=== PATIENT | female | born 1965 | race Caucasian/White ===

== ENCOUNTER 2019-01-14 05:10 | Emergency (ER) | payer BC ==
[2019-01-14] MEDS ORDERED: MORPHINE SULFATE 5 MG/ML VIAL IVP ONE ×2 (05:26→08:07)
[2019-01-14] MEDS ORDERED: 0.9 % SODIUM CHLORIDE 1,000 ML BAG IV ONE (05:26)
[2019-01-14] MEDS ORDERED: ONDANSETRON HCL IV 4 MG/2 ML VIAL IVP ONE (05:26)
--- NOTE | 2019-01-14 05:32 | Emergency Department Record ---
History of Present Illness - General Chief Complaint: Abdominal Pain Stated Complaint: abd pain Time Seen by Provider: 01/14/19 05:11 Source: Patient Mode of Arrival: Ambulatory Limitations: No limitations - History of Present Illness Initial Comments: 53 yo female presents with left sided abdominal pain the last two days. The pain goes from the umbilical area to the left upper quadrant. She has some left flank pain as well. She has had some nausea without vomiting. No diarrhea. One week ago she had dysuria with frequency. She was treated at an Urgent Care. She reports she was diagnosed with a UTI. She has been on Macrobid. No hematuria. No diarrhea. No vomiting. She thinks she had a fever yesterday. She has had three hernia surgeries as well as an appendectomy. No rash in the area of pain. Her PCP is Dr Love. Complaint: Abdominal pain Onset/Timin -: Days(s) (2) Location: LLQ Radiation: L flank Migration to: No migration Severity scale (1-10): 9 Quality: Sharp, Stabbing Consistency: Constant Improves With: Nothing Worsens With: Movement Associated Symptoms: Denies other symptoms - Related Data Patient : No Home Medications Medication Instructions Recorded Confirmed Last Taken Amlodipine Besylate [Norvasc] 1 tab PO DAILY 01/14/19 01/14/19 01/13/19 Clonazepam 1 tab PO BID 01/14/19 01/14/19 01/14/19 Dicyclomine HCl [Bentyl] 1 tab PO ASDIR PRN 01/14/19 01/14/19 01/14/19 Metoprolol Succinate [Toprol Xl] 1 tab PO DAILY 01/14/19 01/14/19 01/13/19 Nitrofurantoin Monohyd/M-Cryst 1 tab PO BID 01/14/19 01/14/19 01/13/19 [Macrobid 100 mg Capsule] Omeprazole [Prilosec] 20 mg PO BID 01/14/19 01/14/19 01/13/19 Tramadol HCl 1 tab PO QID 01/14/19 01/14/19 01/13/19 Previous Rx's Medication Instructions Recorded Ciprofloxacin HCl [Cipro] 500 mg PO Q12HR #20 tablet 01/14/19 Fluconazole [Diflucan] 150 mg PO ONCE #1 tab 01/14/19 Hydrocodone/Acetaminophen [Orlinda 1 each PO Q4HR #18 tablet 01/14/19 5-325 Tablet] Metronidazole [Flagyl] 500 mg PO Q8H #30 tablet 01/14/19 Allergies Allergy/AdvReac Type Severity Reaction Status Date / Time atropine [From ] Allergy RASH Verified 01/14/19 05:28 azithromycin Allergy RASH Verified 01/14/19 05:28 hyoscyamine [From ] Allergy RASH Verified 01/14/19 05:28 magnesium Allergy FLUSHING Verified 01/14/19 05:28 phenobarbital [From ] Allergy RASH Verified 01/14/19 05:28 scopolamine [From ] Allergy RASH Verified 01/14/19 05:28 sulfamethoxazole Allergy RASH Verified 01/14/19 05:28 [From Bactrim] trimethoprim [From Bactrim] Allergy RASH Verified 01/14/19 05:28 Travel Screening - Travel/Exposure Within Last 30 Days Have you traveled within the last 30 days?: No - Travel/Exposure Within Last Year Have you traveled outside the [place] in the last year?: No - Additonal Travel Details Have you been exposed to anyone with a communicable illness?: No - Travel Symptoms Symptom Screening: None Review of Systems Constitutional: Reports: Fever. Denies: Chills, Malaise, Weakness Eyes: Denies: Eye discharge ENT: Denies: Congestion, Throat pain Respiratory: Denies: Cough, Dyspnea Cardiovascular: Denies: Chest pain, Palpitations, Syncope Endocrine: Denies: Fatigue, Polydipsia, Polyuria Gastrointestinal: Reports: As per HPI, Abdominal pain, Nausea, Vomiting. Denies: Constipation, Diarrhea, Hematemesis, Hematochezia, Melena Genitourinary: Reports: As per HPI, Dysuria, Frequency, Urgency Musculoskeletal: Reports: As per HPI, Back pain. Denies: Arthralgia Skin: Denies: Bruising, Change in color, Rash Neurological: Denies: Headache, Weakness Psychiatric: Denies: Anxiety Hematological/Lymphatic: Denies: Easy bleeding, Easy bruising Past Medical History - SOCIAL HISTORY Smoking Status: Current every day smoker Alcohol Use: Rare Drug Use: None - RESPIRATORY Hx Respiratory Disorders: Yes Hx Pneumonia: Yes - CARDIOVASCULAR Hx Cardio Disorders: Yes Hx Hypertension: Yes - NEURO Hx Neuro Disorders: No - GI Hx GI Disorders: Yes Hx Hiatal Hernia: Yes - Hx Genitourinary Disorders: Yes Hx UTI: Yes - ENDOCRINE Hx Endocrine Disorders: No - MUSCULOSKELETAL Hx Musculoskeletal Disorders: No - PSYCH Hx Psych Problems: Yes Hx Anxiety: Yes Family Medical History Any Significant Family History?: No Physical Exam - General General Appearance: Alert, Oriented x3, Cooperative, No acute distress Limitations: No limitations - Head Head exam: Atraumatic, Normal inspection - Eye Eye exam: Normal appearance, PERRL. negative: Conjunctival injection, Scleral icterus - ENT ENT exam: Normal exam Ear exam: Normal external inspection Nasal Exam: Normal inspection Mouth exam: Normal external inspection - Neck Neck exam: Normal inspection - Respiratory Respiratory exam: Normal lung sounds bilaterally. negative: Respiratory distress - Cardiovascular Cardiovascular Exam: Regular rate, Normal rhythm, Normal heart sounds - GI/Abdominal GI/Abdominal exam: Soft, Tenderness (tender in the LUQ but soft, no definite mass or palpable hernia. The remainder of the abdomen is very soft and not tend er). negative: Distended, Guarding, Rebound, Rigid - Rectal Rectal exam: Deferred - exam: Deferred - Extremities Extremities exam: Normal inspection. negative: Pedal edema, Tenderness - Back Back exam: Reports: CVA tenderness (L). Denies: CVA tenderness (R), Rash noted - Neurological Neurological exam: Alert, Oriented X3 - Psychiatric Psychiatric exam: Normal affect, Normal mood. negative: Agitated, Anxious - Skin Skin exam: Dry, Intact, Normal color, Warm Course - Reevaluation(s) Reevaluation #1: 01/14/19 05:49 The CBC was reviewed No acute changes The UA is negative for signs of infection 01/14/19 07:00 The patient was signed out a shift change to Dr Handy The CT is pending at this time Turnover was performed at the bedside Medical Decision Making - Lab Data Result diagrams: 01/14/19 05:37 01/14/19 05:37 Disposition Disposition: Discharge Clinical Impression: Diverticulitis Abdominal pain Qualifiers: Abdominal location: unspecified location Qualified Code(s): R10.9 - Unspecified abdominal pain Disposition: Home, Self-Care Condition: (1) Good Instructions: Diverticulitis (ED), Abdominal Pain (ED) Additional Instructions: Review this ER visit and the tests performed with your family doctor Call your doctor for the next available follow up appointment Return to the ER for a recheck if worse, any new concerns or questions Take the prescriptions provided as directed low fiber diet for 2 weeks follow up with your family Dr in 2-3 days. Prescriptions: Hydrocodone/Acetaminophen [Orlinda 5-325 Tablet] 1 each PO Q4HR #18 tablet Ciprofloxacin HCl [Cipro] 500 mg PO Q12HR #20 tablet Fluconazole [Diflucan] 150 mg PO ONCE #1 tab Metronidazole [Flagyl] 500 mg PO Q8H #30 tablet Referrals: Virgil Cintron [DOCTOR OF OSTEOPATH] - [facility] Specialty Clinics [Provider Group] Forms: Patient Portal Access Time of Disposition: 07:30 Quality - Quality Measures Quality Measures: N/A - Blood Pressure Screening Does Patient Have Any of the Following: Active Dx of HTN Blood Pressure Classification: Hypertensive Reading Systolic Measurement: 156 Diastolic Measurement: 96 Screening for High Blood Pressure: Patient Exclusion, Hx of HTN [G9744]
[2019-01-14 05:42] LABS: ABSOLUTE NEUTROPHIL COUNT 6.02; BASO % 0.3 % (0-6); EOS % 2.4 % (0-6); GRAN % 58.4 % (47-80); HEMATOCRIT 42.6 % (35.0-47.0); HEMOGLOBIN 13.7 gm/dl (11.6-16.0); LYMPH % 30.8 % (16-45); MEAN CELL VOLUME 94.2 fl (81-97); MEAN CORPUSCULAR HEMOGLOBIN 30.3 pg (27-33); MEAN CORPUSCULAR HGB CONC 32.2 g/dl (32-36); MEAN PLATELET VOLUME 9.5 fl (7.4-10.4); MONO % 8.1 % (0-9); PLATELET COUNT 301 K/uL (130-400); RED BLOOD COUNT 4.52 M/uL (3.80-5.40); RED CELL DISTRIBUTION WIDTH 12.8 % (11.5-14.5); WHITE BLOOD COUNT W/O DIFF 10.3 K/uL (4.2-12.2)
[2019-01-14 05:44] LABS: URINE APPEARANCE CLEAR; URINE BILIRUBIN NEGATIVE (NEGATIVE); URINE BLOOD TRACE-L (NEGATIVE); URINE COLOR YELLOW; URINE GLUCOSE (UA) NEGATIVE (NEGATIVE); URINE KETONE NEGATIVE (NEGATIVE); URINE LEUKOCYTE ESTERASE NEGATIVE (NEGATIVE); URINE NITRITE NEGATIVE (NEGATIVE); URINE PROTEIN NEGATIVE (NEGATIVE); URINE UROBILINOGEN 0.2 E.U./dL (0.20 - 1.00)
[2019-01-14 05:53] LABS: URINE BACTERIA FEW; URINE WBC 0 - 2 (0-2/hpf)
[2019-01-14 05:58] LABS: BLOOD UREA NITROGEN 26 mg/dL (6-20); CREATININE 0.7 mg/dL (0.5-0.9); EST GLOMERULAR FILTRATION RATE > 60 mL/min
[2019-01-14 05:59] LABS: LIPASE 29 U/L (13-60)
[2019-01-14 06:01] LABS: GLUCOSE,RANDOM 120 mg/dL (74-109)
[2019-01-14 06:03] LABS: ALT/SGPT 18 U/L (<33)
[2019-01-14 06:04] LABS: ALB/GLOB RATIO 1.6 (1.1-1.8); ALBUMIN 4.3 g/dL (4.0-5.0); ALKALINE PHOSPHATASE 88 U/L (35-104); AST/SGOT 14 U/L (10.0-35.0)
--- NOTE | 2019-01-14 07:21 | Emergency Department Record ---
History of Present Illness - General Chief Complaint: Abdominal Pain Stated Complaint: abd pain Time Seen by Provider: 01/14/19 05:11 Source: Patient Mode of Arrival: Ambulatory Limitations: No limitations - History of Present Illness Initial Comments: patient developed abd pain 2 days ago after 7 bouts of diarrhea and she took four immodims on and yesterday she had formed stool but she developed left sided abd pain and periumbilical abd pain and bloating and no vomiting and no dysuria but she was diagnosed with a UTI about 8 days ago and has a few macrobids left. PSH GB removal ,hysterectomy and umbilical hernia repair with mesh and she said the pain feels like when she had the umbilical hernia. Appendectomy and her primary is Dr Palacios. Complaint: Abdominal pain Onset/Timin -: Days(s) (2) Location: LLQ Radiation: L flank Migration to: No migration Severity scale (1-10): 9 Quality: Sharp, Stabbing Consistency: Constant Improves With: Nothing Worsens With: Movement Associated Symptoms: Denies other symptoms - Related Data Patient : No Home Medications Medication Instructions Recorded Confirmed Last Taken Amlodipine Besylate [Norvasc] 1 tab PO DAILY 01/14/19 01/14/19 01/13/19 Clonazepam 1 tab PO BID 01/14/19 01/14/19 01/14/19 Dicyclomine HCl [Bentyl] 1 tab PO ASDIR PRN 01/14/19 01/14/19 01/14/19 Metoprolol Succinate [Toprol Xl] 1 tab PO DAILY 01/14/19 01/14/19 01/13/19 Nitrofurantoin Monohyd/M-Cryst 1 tab PO BID 01/14/19 01/14/19 01/13/19 [Macrobid 100 mg Capsule] Omeprazole [Prilosec] 20 mg PO BID 01/14/19 01/14/19 01/13/19 Tramadol HCl 1 tab PO QID 01/14/19 01/14/19 01/13/19 Previous Rx's Medication Instructions Recorded Ciprofloxacin HCl [Cipro] 500 mg PO Q12HR #20 tablet 01/14/19 Fluconazole [Diflucan] 150 mg PO ONCE #1 tab 01/14/19 Hydrocodone/Acetaminophen [Orrick 1 each PO Q4HR #18 tablet 01/14/19 5-325 Tablet] Metronidazole [Flagyl] 500 mg PO Q8H #30 tablet 01/14/19 Allergies Allergy/AdvReac Type Severity Reaction Status Date / Time atropine [From ] Allergy RASH Verified 01/14/19 05:28 azithromycin Allergy RASH Verified 01/14/19 05:28 hyoscyamine [From ] Allergy RASH Verified 01/14/19 05:28 magnesium Allergy FLUSHING Verified 01/14/19 05:28 phenobarbital [From ] Allergy RASH Verified 01/14/19 05:28 scopolamine [From ] Allergy RASH Verified 01/14/19 05:28 sulfamethoxazole Allergy RASH Verified 01/14/19 05:28 [From Bactrim] trimethoprim [From Bactrim] Allergy RASH Verified 01/14/19 05:28 Travel Screening - Travel/Exposure Within Last 30 Days Have you traveled within the last 30 days?: No - Travel/Exposure Within Last Year Have you traveled outside the [place] in the last year?: No - Additonal Travel Details Have you been exposed to anyone with a communicable illness?: No - Travel Symptoms Symptom Screening: None Review of Systems Constitutional: Reports: Fever. Denies: Chills, Malaise, Weakness Eyes: Denies: Eye discharge ENT: Denies: Congestion, Throat pain Respiratory: Denies: Cough, Dyspnea Cardiovascular: Denies: Chest pain, Palpitations, Syncope Endocrine: Denies: Fatigue, Polydipsia, Polyuria Gastrointestinal: Reports: As per HPI, Abdominal pain, Nausea. Denies: Constipation, Diarrhea, Hematemesis, Hematochezia, Melena Genitourinary: Reports: As per HPI, Dysuria, Frequency, Urgency Musculoskeletal: Reports: As per HPI, Back pain. Denies: Arthralgia Skin: Denies: Bruising, Change in color, Rash Neurological: Denies: Headache, Weakness Psychiatric: Denies: Anxiety Hematological/Lymphatic: Denies: Easy bleeding, Easy bruising Past Medical History - SOCIAL HISTORY Smoking Status: Current every day smoker Alcohol Use: Rare Drug Use: None - RESPIRATORY Hx Respiratory Disorders: Yes Hx Pneumonia: Yes - CARDIOVASCULAR Hx Cardio Disorders: Yes Hx Hypertension: Yes - NEURO Hx Neuro Disorders: No - GI Hx GI Disorders: Yes Hx Hiatal Hernia: Yes - Hx Genitourinary Disorders: Yes Hx UTI: Yes - ENDOCRINE Hx Endocrine Disorders: No - MUSCULOSKELETAL Hx Musculoskeletal Disorders: No - PSYCH Hx Psych Problems: Yes Hx Anxiety: Yes Family Medical History Any Significant Family History?: No Physical Exam - General General Appearance: Alert, Oriented x3, Cooperative, No acute distress Limitations: No limitations - Head Head exam: Normal inspection - Eye Eye exam: Normal appearance, PERRL Pupils: Normal accommodation - ENT ENT exam: Normal exam, Mucous membranes moist, Normal external ear exam, Normal orophraynx, TM's normal bilaterally Ear exam: Normal external inspection. negative: External canal tenderness Nasal Exam: Normal inspection. negative: Discharge, Sinus tenderness Mouth exam: Normal external inspection, Tongue normal Teeth exam: Normal inspection. negative: Dental caries Throat exam: Normal inspection. negative: Tonsillar erythema, Tonsillar exudate - Neck Neck exam: Normal inspection, Full ROM. negative: Tenderness - Respiratory Respiratory exam: Normal lung sounds bilaterally. negative: Respiratory distress - Cardiovascular Cardiovascular Exam: Regular rate, Normal rhythm, Normal heart sounds - GI/Abdominal GI/Abdominal exam: Soft, Normal bowel sounds, Guarding, Tenderness (left sided abd pain and periumbilical pain) - Rectal Rectal exam: Deferred - exam: Deferred - Extremities Extremities exam: Normal inspection, Full ROM, Normal capillary refill. negative: Tenderness - Back Back exam: Reports: Normal inspection, Full ROM. Denies: Muscle spasm, Rash noted, Tenderness - Neurological Neurological exam: Alert, Normal gait, Oriented X3, Reflexes normal - Psychiatric Psychiatric exam: Normal affect, Normal mood - Skin Skin exam: Dry, Intact, Normal color, Warm Course Vital Signs 01/14/19 01/14/19 05:36 06:41 Temperature 98.1 F Pulse Rate [ 80 69 Left] Respiratory 16 Rate Blood Pressure 164/95 158/99 [Left Arm] Pulse Ox 99 100 took over patient [address] Dr Riddle at [address] scan reading was pending - Reevaluation(s) Reevaluation #1: discussed options of staying vs outpatient treatment and she wants outpatient treatment. 01/14/19 08:09 Medical Decision Making - Lab Data Result diagrams: 01/14/19 05:37 01/14/19 05:37 Lab Results 01/14/19 01/14/19 01/14/19 Range/Units 05:15 05:37 05:37 WBC 10.3 (4.2-12.2) K/uL RBC 4.52 (3.80-5.40) M/uL Hgb 13.7 (11.6-16.0) gm/dl Hct 42.6 (35.0-47.0) % MCV 94.2 (81-97) fl MCH 30.3 (27-33) pg MCHC 32.2 (32-36) g/dl RDW 12.8 (11.5-14.5) % Plt Count 301 (130-400) K/uL MPV 9.5 (7.4-10.4) fl Gran % 58.4 (47-80) % Lymphocytes % 30.8 (16-45) % Monocytes % 8.1 (0-9) % Eosinophils % 2.4 (0-6) % Basophils % 0.3 (0-6) % Absolute Neutrophils 6.02 Sodium 139 (136-145) mmol/L Potassium 3.5 (3.4-4.5) mmol/L Chloride 99 (98-107) mmol/L Carbon Dioxide 27.0 (22-29) mmol/L Anion Gap 13.0 (7-16) BUN 26 H (6-20) mg/dL Creatinine 0.7 (0.5-0.9) mg/dL Estimated GFR > 60 mL/min Random Glucose 120 H (74-109) mg/dL Calcium 9.4 (8.6-10.0) mg/dL Total Bilirubin 0.20 (0.2-1.0) mg/dL AST 14 (10.0-35.0) U/L ALT 18 (<33) U/L Alkaline Phosphatase 88 (35-104) U/L Total Protein 7.0 (6.6-8.7) g/dL Albumin 4.3 (4.0-5.0) g/dL Globulin 2.7 (1.4-4.8) gm/dL Albumin/Globulin Ratio 1.6 (1.1-1.8) Lipase 29 (13-60) U/L Urine Color Yellow Urine Appearance Clear Urine pH 7.0 (5.0-8.0) Ur Specific [place] <= 1.005 (1.002-1.030) Urine Protein Negative (NEGATIVE) Urine Glucose (UA) Negative (NEGATIVE) Urine Ketones Negative (NEGATIVE) Urine Blood Trace-l (NEGATIVE) Urine Nitrite Negative (NEGATIVE) Urine Bilirubin Negative (NEGATIVE) Urine Urobilinogen 0.2 (0.20 - 1.00) E.U./dL Ur Leukocyte Esterase Negative (NEGATIVE) Urine RBC 3 - 6 (NONE SEEN) Urine WBC 0 - 2 (0-2/hpf) Ur Epithelial Cells 3 - 6 (FEW) Urine Bacteria Few Disposition Clinical Impression: Diverticulitis Abdominal pain Qualifiers: Abdominal location: unspecified location Qualified Code(s): R10.9 - Unspecified abdominal pain Disposition: Home, Self-Care Condition: (1) Good Instructions: Diverticulitis (ED), Abdominal Pain (ED) Additional Instructions: Review this ER visit and the tests performed with your family doctor Call your doctor for the next available follow up appointment Return to the ER for a recheck if worse, any new concerns or questions Take the prescriptions provided as directed low fiber diet for 2 weeks follow up with your family Dr in 2-3 days. Prescriptions: Hydrocodone/Acetaminophen [Orrick 5-325 Tablet] 1 each PO Q4HR #18 tablet Ciprofloxacin HCl [Cipro] 500 mg PO Q12HR #20 tablet Fluconazole [Diflucan] 150 mg PO ONCE #1 tab Metronidazole [Flagyl] 500 mg PO Q8H #30 tablet Referrals: [facility] Specialty Clinics [Provider Group] Virgil Cintron [DOCTOR OF OSTEOPATH] - Forms: Patient Portal Access Time of Disposition: 08:13 Quality - Quality Measures Quality Measures: N/A - Blood Pressure Screening Does Patient Have Any of the Following: No, Active Dx of HTN Blood Pressure Classification: Hypertensive Reading Systolic Measurement: 158 Diastolic Measurement: 99 Screening for High Blood Pressure: Patient Exclusion, Hx of HTN [G9744]
--- NOTE | 2019-01-14 07:47 | CT SCAN REPORT ---
EXAMINATION: CT Abdomen and Pelvis with IV Contrast EXAM DATE: 01/14/2019 6:30 AM TECHNIQUE: CT imaging of the abdomen and pelvis was performed with intravenous contrast. Coronal and sagittal images were reconstructed. IV Contrast: The amount and type of contrast are recorded in the medical record. INDICATION: Left abdominal pain COMPARISON: None ENCOUNTER: Not applicable Findings: Systemic/external: There is mild lumbosacral degenerative disc disease. No acute or destructive bony abnormality is seen. A tiny calcified granuloma is partially visualized in the left lower lobe on the superiormost image of the axial series. There is a ventral periumbilical hernia repair, with no curr ent herniation. There is moderate aortoiliac atherosclerotic calcification, with no aneurysm evident. No abdominal or pelvic lymphadenopathy is seen. Abdomen/pelvis organs: The liver, spleen, gallbladder, bile ducts, and pancreas are unremarkable. The adrenal glands are unremarkable. Bilateral renal cysts are noted. The ureters and urinary bladder ar e unremarkable. The uterus has been removed. The ovaries are unremarkable. The stomach and small zoila l loops are unremarkable. An appendix is not seen. Correlate for surgical removal. There is mild left colonic diverticulosis, with a focus of acute diverticulitis in the distal descending colon, with no abscess or perforation evident. IMPRESSION: 1. Distal descending colonic acute diverticulitis, with no abscess or perforation seen. This is super imposed on mild left colonic diverticulosis. 2. See above for incidental findings. Dictated by: Ino Barreto MD on 01/14/2019 7:37 AM. .
[2019-01-14] MEDS ORDERED: CIPROFLOXACIN HCL 500 MG TABLET PO ONE (07:51)
[2019-01-14] MEDS ORDERED: METRONIDAZOLE 250 MG TABLET PO ONE (07:51)
== END 2019-01-14 08:42 | disposition home or self-care (01) ==
LOC: ER 05:10
DX: K57.92 Diverticulitis of intestine, part unspecified, without perforation or abscess without bleeding (principal); R10.32 Left lower quadrant pain; R19.7 Diarrhea, unspecified; I10 Essential (primary) hypertension; F17.210 Nicotine dependence, cigarettes, uncomplicated
CPT/HCPCS: 74177; 80053; 81001; 83690; 85025; 96374; 96375; 96376; 99284; J2405; J7030